=== PATIENT | female | born 1970 | race Caucasian/White ===

== ENCOUNTER → 2017-02-07 | Outpatient (CLI) | payer OTHER ==
--- NOTE | 2017-02-07 13:53 | REP ---
Mandible series: Four views. History: Severe right temporomandibular joint pain. The patient is status post injury. Findings: Four views of the mandible are presented. No mandibular, subcondylar or condylar fracture is seen. Zygomatic arches appear intact. No evidence of malocclusion. Impression: No fracture seen. Signed by Julian Francis MD 02/07/2017 02:07 P
== END ==
LOC: M WUC 12:01
PROVIDERS: ATTEND Physician Assistant
DX: R68.84 Jaw pain (principal)

== ENCOUNTER → 2017-10-24 | Day surgery (SDC) | payer OTHER ==
[~2017-10-24] MED LIST: HYDROmorphone HCL 1 MG/ML SYRINGE (J1170) IV; KETAMINE HCL 200 MG/20 ML VIAL As Ordered; LIDOCAINE 2% INJ 100 MG/5 ML SDV (FOR ANES.) As Ordered; LR 1,000 ML IV; MIDAZOLAM INJ 2 MG/2 ML VIAL (J2250) As Ordered; ONDANSETRON 4MG/2ML VIAL (J2405) IV; PERCOCET 5MG/325MG TAB PO; PROPOFOL 200 MG/20 ML VIAL As Ordered; fentaNYL 100 MCG/2 ML INJECTION (J3010) As Ordered; fentaNYL 100 MCG/2 ML INJECTION (J3010) IV
[2017-10-24 11:20] LABS: CONTROL LINE UCG INT CTR LINE PRESENT; URINE PREG TEST NEGATIVE (NEGATIVE)
[2017-10-24] MEDS: LIDOCAINE W/EPINEPHRINE 1% 20ML VIAL As Ordered (13:04)
[2017-10-24] MEDS: BUPIVACAINE HCL 0.25% 10 ML VIAL As Ordered (13:04)
[2017-10-24] MEDS: BUPIVACAINE HCL 0.5% 30 ML VIAL As Ordered (14:07)
[2017-10-24] MEDS: HEPARIN SOD (PORCINE) 5000 UNITS/ML VIAL As Ordered (14:07)
[2017-10-24] MEDS: LIDOCAINE 1% SDV INJ 30 ML VIAL As Ordered (14:07)
== END | disposition home or self-care (01) ==
LOC: M SDC 10:10
DX: Z45.2 Encounter for adjustment and management of vascular access device (principal); Z79.899 Other long term (current) drug therapy
CPT/HCPCS: 36561

== ENCOUNTER 2017-11-02 01:42 | Emergency (ER) | payer OTHER, MEDICAID ==
[2017-11-02] MEDS ORDERED: KETAMINE HCL 200 MG/20 ML VIAL IV (03:00)
[2017-11-02] MEDS: LORazepam 2 MG/ML VIAL (J2060) IV (05:30)
== END 2017-11-02 06:46 | disposition short-term general hospital (02) ==
LOC: M ED 01:42
DX: G90.50 Complex regional pain syndrome I, unspecified (principal); Z91.81 History of falling; Z88.8 Allergy status to other drugs, medicaments and biological substances; Z88.2 Allergy status to sulfonamides; Z88.0 Allergy status to penicillin; Z79.899 Other long term (current) drug therapy
CPT/HCPCS: J2060

== ENCOUNTER → 2017-11-14 | Outpatient (CLI) | payer OTHER ==
[~2017-11-14] MED LIST changes: +CLINDAMYCIN 600 MG/50 ML PREMIX BAG As Ordered; -HYDROmorphone HCL 1 MG/ML SYRINGE (J1170) IV; +ISOVUE-300 61% 50ML VIAL (Q9967) As Ordered; -KETAMINE HCL 200 MG/20 ML VIAL As Ordered; -LIDOCAINE 2% INJ 100 MG/5 ML SDV (FOR ANES.) As Ordered; +LIDOCAINE 4% CREAM 5GM (LMX4) As Ordered; -LR 1,000 ML IV; -ONDANSETRON 4MG/2ML VIAL (J2405) IV; -PERCOCET 5MG/325MG TAB PO; -PROPOFOL 200 MG/20 ML VIAL As Ordered; +ceFAZolin 1GM INJ (J0690 PER 500MG) As Ordered; -fentaNYL 100 MCG/2 ML INJECTION (J3010) IV
== END | disposition home or self-care (01) ==
LOC: M IRPRO 09:49
DX: T82.868A Thrombosis due to vascular prosthetic devices, implants and grafts, initial encounter (principal); Z79.899 Other long term (current) drug therapy
CPT/HCPCS: 36596

== ENCOUNTER 2018-03-04 15:56 | Outpatient (CLI) | payer OTHER ==
[~2018-03-04 15:56] MED LIST changes: -CLINDAMYCIN 600 MG/50 ML PREMIX BAG As Ordered; -ISOVUE-300 61% 50ML VIAL (Q9967) As Ordered; -LIDOCAINE 4% CREAM 5GM (LMX4) As Ordered; -MIDAZOLAM INJ 2 MG/2 ML VIAL (J2250) As Ordered; +SODIUM CHLORIDE 0.9% INJ 10 ML SYR IV; -ceFAZolin 1GM INJ (J0690 PER 500MG) As Ordered; -fentaNYL 100 MCG/2 ML INJECTION (J3010) As Ordered
[2018-03-04] MEDS: ALTEPLASE 2 MG/2 ML VIAL (J2997 PER 1MG) IV (16:42)
== END 2018-03-04 18:00 | disposition home or self-care (01) ==
LOC: M INFU 15:56
DX: T82.898A Other specified complication of vascular prosthetic devices, implants and grafts, initial encounter (principal); Z79.899 Other long term (current) drug therapy; Z88.0 Allergy status to penicillin; Z88.8 Allergy status to other drugs, medicaments and biological substances; I10 Essential (primary) hypertension; E78.5 Hyperlipidemia, unspecified; F17.210 Nicotine dependence, cigarettes, uncomplicated; G90.511 Complex regional pain syndrome I of right upper limb; G89.4 Chronic pain syndrome
CPT/HCPCS: 96523

== ENCOUNTER → 2018-03-17 | Outpatient (CLI) | payer OTHER ==
[~2018-03-17] MED LIST changes: +CLINDAMYCIN 600 MG/50 ML PREMIX BAG As Ordered; +LIDOCAINE 2% MDV 20 ML VIAL As Ordered; +MIDAZOLAM INJ 2 MG/2 ML VIAL (J2250) As Ordered; -SODIUM CHLORIDE 0.9% INJ 10 ML SYR IV; +fentaNYL 100 MCG/2 ML INJECTION (J3010) As Ordered
== END | disposition home or self-care (01) ==
LOC: M IRPRO 11:20
DX: T82.9XXA Unspecified complication of cardiac and vascular prosthetic device, implant and graft, initial encounter (principal); G90.511 Complex regional pain syndrome I of right upper limb
CPT/HCPCS: 36561

== ENCOUNTER → 2018-10-23 | Outpatient (CLI) | payer OTHER ==
[~2018-10-23] MED LIST changes: -CLINDAMYCIN 600 MG/50 ML PREMIX BAG As Ordered; +CLINDAMYCIN 600 MG/50 ML PREMIX BAG As Ordered ONE; +GRAL600T PO; +HYDR-3363 PO; +IBUP1TAB6 PO; +ISOVUE-300 61% 50ML VIAL (Q9967) As Ordered ONE; +LIDO5TD TD; -LIDOCAINE 2% MDV 20 ML VIAL As Ordered; +LIDOCAINE 2% MDV 20 ML VIAL As Ordered ONE; +MEXI15CA PO; -MIDAZOLAM INJ 2 MG/2 ML VIAL (J2250) As Ordered; +SERT-138 PO; +SIMV20TA2 PO; +TIZA4CAP PO; +TYLE325T5 PO; +VOLT1GEL15 TD; +[UNRECOGNIZED DRUG - CODE] IV; -fentaNYL 100 MCG/2 ML INJECTION (J3010) As Ordered
--- NOTE | 2018-10-23 07:35 | ROOPDOC ---
[facility] Report Of Operation Report of Operation DATE OF PROCEDURE: 10/23/2018 PREOPERATIVE DIAGNOSIS: Regional complex syndrome requiring access for medication instillation and blood draws. POSTOPERATIVE DIAGNOSIS: Regional complex syndrome requiring access for medication instillation and blood draws. PROCEDURE: Fluoroscopic evaluation of left subclavian vein tunneled central venous catheter with subcutaneous port. Left subclavian vein tunneled central venous catheter with subcutaneous port removal. Ultrasound guided left internal jugular vein cannulation. Fluoroscopic guided left internal jugular vein tunneled central venous catheter with subcutaneous port placement with placement of a power injectable [employer] Tall Timber Power Port with 25 cm length catheter. SURGEON: Dr. Haile Siddiqi M.D. [employer] HEL[employer]TER: Rosita Valenzuela ANESTHESIA: Local with 20 mL of 2% lidocaine. SEDATION TIME: None ANTIBIOTICS: Clindamycin 600 mg FLUOROSCOPY TIME: 0.4 minutes. CONTRAST: None. ESTIMATED BLOOD LOSS: 25 mL. IV FLUID: 150 mL. COMPLICATIONS: None. DRAINS: None. SPECIMENS: None. FINDINGS: Fluoroscopic evaluation of the left subclavian vein tunneled central venous catheter was subcutaneous port showed the catheter to be coiled in the left chest with the tip of the catheter in the subclavian vein and innominate vein junction on the left. IMPLANTS: Power injectable left internal jugular vein tunneled central venous catheter with subcutaneous port utilizing a Bard Tall Timber Power Port. INDICATION: Patient is a 47-year-old female with regional complex pain syndrome in her right upper extremity who previously underwent placement of a left subclavian vein tunneled central venous catheter with subcutaneous port placement. The port has been dysfunctional and has been able to have instillation through the port but there is no aspiration of blood on withdrawal as well as pain with cannulation of the port. Patient will undergo evaluation of the port with possible revision, repair, and or replacement. Procedure was described and explained to the patient in detail including drawing of pictures showing the procedure and anatomy associated with revision, repair, and or replacement of the tunneled central venous catheter with subcutaneous port. Risks, benefits, and alternative treatment options were discussed with the patient. Alternative treatment options included, but were not limited to, no intervention. Benefits included, but were not limited to, access for medication infusion centrally, avoiding recurrent venous cannulations , IV placements and sclerosis of peripheral veins. Risks included, but were not limited to, infection, bleeding, pneumothorax, hemothorax, possible need for further open surgical intervention, renal failure requiring hemodialysis, failure of the tunneled central venous catheter with subcutaneous port to function properly requiring evaluation, revision and/or replacement, anesthetic complication, sedation complication, possible need for transfusion of blood products, allergic reaction and/or complication from the prepping and draping materials, bruising, scarring, cerebrovascular accident, myocardial infarction, pulmonary embolus, deep venous thrombosis, loss of limb, loss of life, and poor outcome. Patient's questions were answered. Patient voices understanding of these risks, benefits, and alternative treatment options. Patient voices acceptance of the risks associated with placement of a central venous tunneled catheter with subcutaneous port placement and consents to proceed with tunneled central venous catheter with subcutaneous port placement. DESCRIPTION OF PROCEDURE: Patient was taken to the angiography suite, placed supine on the angiography room table, and prepped and draped in a standard surgical fashion. Prior to prepping and draping the veins in the neck were evaluated using ultrasound and the patient was noted to have a patent left internal jugular vein which was adequate for placement of a tunneled central venous catheter with subcutaneous port. A time-out was conducted by myself and the team members involved in the procedure, confirming the correct procedure, patient, and laterality. Fluoroscopy was then used to evaluate the left subclavian vein tunneled central venous catheter was subcutaneous port which showed the catheter to be coiled in the left chest with the tip in the subclavian vein and innominate vein junction. An incision was then made over lying the port through the previous incision made for insertion of the port after anesthetizing the overlying skin with 2% lidocaine. The subcutaneous port were sharply dissected free and removed as well as the catheter. Ultrasound was then used to evaluate the left internal jugular vein, which was noted to be easily compressible, widely patent, and free of thrombus. Ultrasound was then used to guide cannulation of the left internal jugular vein with a micropuncture needle with real-time concurrent visualization of the entry of the needle into the left internal jugular vein with a hardcopy image preserved. The skin overlying the right internal jugular vein was anesthetized with 2% lidocaine prior to cannulation. Once the left internal jugular vein was cannulated, the micropuncture wire was advanced through the micropuncture needle, which was up- sized to a micropuncture sheath. Antibiotics were given through the micropuncture sheath. A J wire was advanced through the micropuncture sheath. The left internal jugular vein was then dilated under fluoroscopic guidance, and a #8- Maltese introducer sheath was positioned through the left internal jugular vein into the superior vena cava. The wire was removed, and the #8-Maltese single lumen catheter, which had been tunneled from a puncture wound in the left chest and brought out at the puncture wound at the left internal jugular vein entry site, was advanced through the introducer sheath under fluoroscopic guidance. The catheter was positioned with the tip in the superior vena cava/right atrial junction under fluoroscopic guidance and the introducer sheath was then removed . The catheter was cut to a length of 25 cm and attached to the port. A subcutaneous pocket was created in the left chest after anesthetizing the overlying tissue with 2% lidocaine through the incision for the removal of the previous subclavian vein port. The new port was placed in the pocket and cannulated using an access needle. The port was noted to aspirate and flush easily and then was flushed with heparinized saline. The incision in the left chest was closed using # 4-0 Monocryl suture in inverted interrupted fashion. The puncture wound in the left neck was closed using a # 4-0 Monocryl in inverted interrupted fashion. Steri-Strips and dressings were applied. Patient tolerated the procedure well. All instrument, sponge, and needle counts were correct at the end of the case. There were no complications. Dr. Siddiqi was present for and directed the entire case. Patient was transferred to the recovery area and subsequently discharged in stable condition. The tunneled central venous catheter with subcutaneous port is stable for use. RADIOLOGIC SUPERVISION AND INTERPRETATION: The initial fluoroscopic evaluation of the left subclavian vein tunneled central venous catheter with subcutaneous port showed the catheter to be coiled in the left chest with the tip in the clinic in the innominate vein junction. The left subclavian vein tunneled central venous catheter with subcutaneous port was removed along with the coiled catheter. The ultrasound showed the left internal jugular vein to be easily compressible, widely patent, and free of thrombus. Ultrasound was used to guide cannulation of the left internal jugular vein with real-time concurrent visualization of the entry of the needle into the left internal jugular vein. The left internal jugular vein was then dilated under fluoroscopic guidance with a #8-Maltese introducer sheath placed under fluoroscopic guidance. The 8 Maltese single lumen catheter was advanced through the introducer sheath and positioned with the tip in the superior vena/right atrial junction using fluoroscopic guidance. The final fluoroscopic image showed the catheter and port to be in good position and good alignment with the tip in the superior vena cava/right atrial junction with no pneumo- or hemothorax noted. The tunneled central venous catheter with subcutaneous port is stable for use. Niels Siddiqi MD Oct 23, 2018 07:35
[2018-10-23 08:38] LABS: ALT/SGPT 16 U/L (12-78)
--- NOTE | 2018-11-11 11:18 | REPIR ---
DATE OF PROCEDURE: 10/23/2018 ATTENDING SURGEON: Dr. Haile Siddiqi WIRE BOUND BOX MACHINE OPERATOR: Marci Simmons and Robyn St PREOPERATIVE DIAGNOSIS: Chronic complex regional pain syndrome, dysfunctional left internal jugular vein Port-A-Cath. POSTOPERATIVE DIAGNOSIS: Chronic complex regional pain syndrome, dysfunctional left internal jugular vein Port-A-Cath. PROCEDURE: Left internal jugular vein flow study. INDICATION: The patient is a 47-year-old female with complex regional pain syndrome who requires access for medication instillation. The patient has had difficulty using her left internal jugular vein Port-A-Cath and will undergo catheter flow study with possible exchange, revision and/or repair. Risks, benefits and alternative treatment options were discussed with the patient. ANESTHESIA: None. ESTIMATED BLOOD LOSS: Minimal. IV FLUIDS: 100 mL. FLUORO TIME: 0.1 minutes. CONTRAST: 2 mL of Isovue-300. COMPLICATIONS: None. DRAINS: None. SPECIMENS: None. IMPLANTS: None. DESCRIPTION OF PROCEDURE: The patient was taken to the angiography suite and placed supine on the angiography room table and then prepped and draped in a standard surgical fashion. The left internal jugular vein tunneled central venous catheter with subcutaneous port was cannulated and aspirated and noted to aspirate easily and then was flushed with heparinized saline. The fluoroscopy showed the catheter to be in good position and good alignment with the tip in the superior vena cava/right atrial junction. The access needle was removed and dressings were applied. The patient tolerated the procedure well. All instrument, sponge and needle counts were correct at the end of the case. There were no complications. Dr. Siddiqi was present for and directed the entire case. The patient was transferred to the holding area and subsequently discharged in stable condition
== END | disposition home or self-care (01) ==
LOC: M IRPRO 06:25
PROVIDERS: ATTEND Surgery Vascular Surgery
DX: T82.524A Displacement of infusion catheter, initial encounter (principal); G90.511 Complex regional pain syndrome I of right upper limb
CPT/HCPCS: 36561; 36590; 76937; 77001; 84450; 84460; Q9967

== ENCOUNTER 2018-11-27 09:07 | Outpatient (CLI) | payer OTHER ==
[~2018-11-27] VITALS: Ht 170.2 cm; Wt 103.6 kg
[~2018-11-27 09:07] MED LIST changes: -CLINDAMYCIN 600 MG/50 ML PREMIX BAG As Ordered ONE; -ISOVUE-300 61% 50ML VIAL (Q9967) As Ordered ONE; -LIDOCAINE 2% MDV 20 ML VIAL As Ordered ONE; +SODIUM CHLORIDE 0.9% INJ 10 ML SYR IV SCH
[2018-11-27 09:15] VITALS: BP 128/81
== END 2018-11-27 10:15 | disposition home or self-care (01) ==
LOC: M INFU 09:07
PROVIDERS: ATTEND Family Medicine
DX: G90.511 Complex regional pain syndrome I of right upper limb (principal)

== ENCOUNTER 2018-11-29 22:31 | Emergency (ER) | payer OTHER ==
[~2018-11-29] VITALS: Ht 170.2 cm; Wt 99.5 kg
[~2018-11-29 22:31] MED LIST changes: -SODIUM CHLORIDE 0.9% INJ 10 ML SYR IV SCH
[2018-11-29] MEDS ORDERED: NALT50TA4 PO (22:44)
[2018-11-29] MEDS ORDERED: BUPR1TAB53 PO (22:44)
[2018-11-29] MEDS ORDERED: GABA600T4 PO (22:44)
[2018-11-29] MEDS ORDERED: TIZA4CAP6 PO (22:44)
[2018-11-29] MEDS ORDERED: CLON-412 PO (22:47)
[2018-11-29] MEDS ORDERED: SERT-138 PO (22:47)
[2018-11-29] MEDS ORDERED: KETOROLAC 30 MG/ML VIAL (J1885) IV ONE (23:15)
[2018-11-29 23:55] LABS: HEMATOCRIT 40.8 % (36.0-47.0); HEMOGLOBIN 13.7 g/dl (12.0-15.5); MEAN CORPUSCULAR HEMOGLOBIN 31.2 pg (27.0-33.0); MEAN CORPUSCULAR HGB CONC 33.6 g/dl (32.0-36.5); MEAN CORPUSCULAR VOLUME 92.9 fl (80.0-96.0); PLATELET COUNT, AUTOMATED 234 10^3/uL (150-450); RED BLOOD COUNT 4.39 10^6/uL (4.00-5.40); WHITE BLOOD COUNT 13.5 10^3/uL (4.0-10.0)
[2018-11-30 00:22] LABS: BLOOD UREA NITROGEN 17 MG/DL (7-18); CALCIUM LEVEL 8.6 MG/DL (8.5-10.1); CARBON DIOXIDE LEVEL 24 MEQ/L (21-32); CHLORIDE LEVEL 107 MEQ/L (98-107); CPK CREATINE PHOSPHOKINASE 82 U/L (26-192); CREATININE FOR GFR 0.78 MG/DL (0.55-1.30); GLOMERULAR FILTRATION RATE > 60.0 (>58); GLUCOSE, FASTING 97 MG/DL (70-100); MB/CK RELATIVE INDEX 1.46 (< OR =4); POTASSIUM SERUM 3.9 MEQ/L (3.5-5.1); SODIUM LEVEL 138 MEQ/L (136-145); TROPONIN I < 0.02 NG/ML (< 0.10)
[2018-11-30 00:38] LABS: ATYPICAL LYMPH 9 % (0-5); BASOPHILS 2 % (0-4); EOSINOPHILS 1 % (0-5); LYMPHOCYTES 36 % (16-52); MONOCYTES 6 % (0-8); NEUTROPHILS 46 % (35-75); PLATELET ESTIMATE NORMAL (NORMAL)
[2018-11-30] MEDS ORDERED: CYCLOBENZAPRINE 10 MG TAB PO ONE (00:45)
[2018-11-30 02:00] VITALS: BP 113/65
--- NOTE | 2018-11-30 03:53 | REP ---
Clinical: Acute chest pain . Comparison: 10/24/2017 . Findings: The mediastinum and cardiac silhouette are stable and within normal limits for portable technique. Ooceim-R-Hcrg with tip in the SVC. The lung adams demonstrate chronic-appearing changes without acute consolidation, effusion, or pneumothorax. Skeletal structures are intact. Impression: No acute cardiopulmonary process appreciated. Electronically Signed by Olu Klein MD 11/30/2018 03:44 A
--- NOTE | 2018-11-30 06:33 | ECGEPIP ---
Stationary ECG Study [facility] - ED Test Date: 2018-11-29 Pat Name: MIA ASHBY Department: Room: - Gender: F [employer] Installer: [place] : 1970 Requested By: MIA Chaudhry Order Number: [id number] Reading MD: Sunny Lopez Measurements Intervals [place] Rate: 81 P: 36 CT: 154 QRS: 32 QRSD: 86 T: 43 QT: 384 QTc: 446 Interpretive Statements SINUS RHYTHM POSSIBLE LEFT ATRIAL ENLARGEMENT NO PRIORS FOR COMPARISON Electronically Signed On 11-30-2018 6:32:44 EDT by Sunny Lopez
== END 2018-11-30 02:34 | disposition home or self-care (01) ==
LOC: M ED 22:31
DX: R10.9 Unspecified abdominal pain (principal); R07.9 Chest pain, unspecified; G90.50 Complex regional pain syndrome I, unspecified; Z79.899 Other long term (current) drug therapy; Z88.0 Allergy status to penicillin; Z88.2 Allergy status to sulfonamides; Z88.8 Allergy status to other drugs, medicaments and biological substances
CPT/HCPCS: 71045; 80048; 81001; 82550; 82553; 85025; 93005; 93041; 94760; 96374; 99285; J1885

== ENCOUNTER → 2018-12-08 | Outpatient (CLI) | payer OTHER ==
[~2018-12-08] MED LIST changes: +BUPIVACAINE HCL 0.5% 10 ML VIAL As Ordered ONE; +BUPR1TAB53 PO; +CLINDAMYCIN 600 MG/50 ML PREMIX BAG As Ordered ONE; +CLON-412 PO; +GABA600T4 PO; +ISOVUE-300 61% 50ML VIAL (Q9967) As Ordered ONE; +KETOROLAC 30 MG/ML VIAL (J1885) As Ordered ONE; +LIDOCAINE 2% MDV 20 ML VIAL As Ordered ONE; +MIDAZOLAM INJ 2 MG/2 ML VIAL (J2250) As Ordered ONE; +NALT50TA4 PO; +TIZA4CAP6 PO; +fentaNYL 100 MCG/2 ML INJECTION (J3010) As Ordered ONE
--- NOTE | 2018-12-16 12:35 | REPIR ---
DATE OF PROCEDURE: 12/08/2018 PREOPERATIVE DIAGNOSES: Regional complex pain syndrome, right upper extremity. Positive tobacco use. Dysfunctional left internal jugular vein Port-A-Cath. POSTOPERATIVE DIAGNOSES: Regional complex pain syndrome, right upper extremity. Positive tobacco use. Dysfunctional left internal jugular vein Port-A-Cath. PROCEDURE: Port-A-Cath flow study, Port-A-Cath exchange, fibrin sheath angioplasty with 10 x 8 balloon. ATTENDING SURGEON: Dr. Haile Siddiqi COMBAT SYSTEMS OPERATOR: Rosita Valenzuela and Marci Simmnos ANESTHESIA: Local with 20 mL of 2% lidocaine and 10 mL of 0.5% Marcaine. FLUORO TIME: 0.9 minutes. CONTRAST: 2 mL clindamycin 600 mg COMPLICATIONS: None. DRAINS: None. SPECIMENS: None. INDICATION: The patient is a 47-year-old female with recent complex pain syndrome who requires access for infusions and has a left internal jugular vein Port-A-Cath, which is dysfunctional. The patient will undergo catheter flow study with possible exchange. The risks, benefits, and alternative treatment options were discussed with the patient. DESCRIPTION OF PROCEDURE: The patient was taken to the angiography suite, placed supine on the angiography room table. The port was dissected free through the old incision and then a catheter flow study was performed showing a fibrin sheath. The fibrin sheath was angioplastied with a 10 x 8 balloon with a followup angiogram showing no residual fibrin sheath. A new catheter was placed over the wire and exchanged for the 25 cm catheter, which was upsized to 27 cm catheter. This was connected to a new port, which was placed in the pocket. The port was aspirated, noted to aspirate easily and then flushed with heparinized saline. The catheter and port were in good position and good alignment on final fluoroscopic image with no pneumothorax or hemothorax noted. The catheter and port are stable for use for access.
== END | disposition home or self-care (01) ==
LOC: M IRPRO 06:38
PROVIDERS: ATTEND Surgery Vascular Surgery
DX: T82.9XXA Unspecified complication of cardiac and vascular prosthetic device, implant and graft, initial encounter (principal); G90.511 Complex regional pain syndrome I of right upper limb; Z72.0 Tobacco use; Z79.899 Other long term (current) drug therapy; Y92.9 Unspecified place or not applicable; X58.XXXA Exposure to other specified factors, initial encounter
CPT/HCPCS: 36582; 36595; 77001; C1725; C1769; C1788; Q9967

== ENCOUNTER 2019-01-07 09:36 | Outpatient (CLI) | payer OTHER ==
[~2019-01-07] VITALS: Ht 170.2 cm; Wt 99.5 kg
[~2019-01-07 09:36] MED LIST changes: -BUPIVACAINE HCL 0.5% 10 ML VIAL As Ordered ONE; -CLINDAMYCIN 600 MG/50 ML PREMIX BAG As Ordered ONE; -ISOVUE-300 61% 50ML VIAL (Q9967) As Ordered ONE; -KETOROLAC 30 MG/ML VIAL (J1885) As Ordered ONE; -LIDOCAINE 2% MDV 20 ML VIAL As Ordered ONE; -MIDAZOLAM INJ 2 MG/2 ML VIAL (J2250) As Ordered ONE; +SODIUM CHLORIDE 0.9% INJ 10 ML SYR IV SCH; -fentaNYL 100 MCG/2 ML INJECTION (J3010) As Ordered ONE
[2019-01-07 09:50] VITALS: BP 124/73
[2019-01-07 11:31] LABS: ALT/SGPT 23 U/L (12-78)
== END 2019-01-07 10:35 | disposition home or self-care (01) ==
LOC: M INFU 09:36
PROVIDERS: ATTEND Family Medicine
DX: G90.511 Complex regional pain syndrome I of right upper limb (principal)

== ENCOUNTER → 2019-02-09 | Outpatient (CLI) | payer OTHER ==
[~2019-02-09] VITALS: Ht 170.2 cm; Wt 103.6 kg
[2019-02-09 08:40] VITALS: BP 123/82
== END ==
LOC: M INFU 08:37
PROVIDERS: ATTEND Family Medicine
DX: G90.511 Complex regional pain syndrome I of right upper limb (principal)

== ENCOUNTER → 2019-03-25 | Outpatient (CLI) | payer OTHER ==
[~2019-03-25] MED LIST changes: -SODIUM CHLORIDE 0.9% INJ 10 ML SYR IV SCH
--- NOTE | 2019-03-25 11:24 | REP ---
MRI LUMBAR SPINE WITHOUT CONTRAST: HISTORY: Paresthesias of the skin. Radiculopathy. No comparison cervical spine imaging. TECHNIQUE: Sagittal and axial T1 and T2-weighted scans are acquired in the usual fashion with and without fat saturation. Sequences include spin echo, turbo spin-echo, and STIR imaging sequences. MRI FINDINGS: There is straightening and slight reversal of the normal cervical lordosis. Vertebral body heights are preserved. Alignment is otherwise normal. A small hemangioma is seen at C6. Cortical and medullary bone signal intensity are otherwise normal. The cervical cord is normal in course, caliber, and signal intensity on T1- and T2-weighted scans. Axial and sagittal images at the C2-3 level are unremarkable. At C3-4, there is minimal central disc bulging indenting the thecal sac. At C4-C5, there is no evidence of disc protrusion, neural foraminal narrowing, or central canal stenosis. At C5-6, there is mild disc bulging and disc space narrowing. This indents the ventral margin of the thecal sac. No central canal stenosis is seen. There is minimal uncovertebral spurring bilaterally at C5-6. At C6-7, there is degenerative disc narrowing. Minimal uncovertebral spurring is noted on the right at C6-7. The C7-T1 level is unremarkable. Exam is otherwise negative. IMPRESSION: Mild degenerative spondylosis changes C5-6 and C6-7 with minimal uncovertebral spurring at these two levels as above. Electronically Signed by Julian Francis MD 03/25/2019 05:02 P
--- NOTE | 2019-03-25 12:01 | REP ---
MRI brain without contrast: History: Para see is a skin. Dizziness. Radiculopathy. . Comparison study: No comparison brain imaging. Technique: Axial and sagittal imaging planes are utilized for T1 and T2-weighted scans. Sequences include spin-echo, fast spin echo, FLAIR, and diffusion weighted sequences. MRI findings: No bony calvarial lesion is seen. Craniocervical junction and upper cervical cord are normal in appearance. There is no MR evidence of significant paranasal sinus disease. No intraorbital abnormality is seen. The lateral, third, and fourth ventricles are normal in size and position. Torres-white differentiation pattern is intact above and below the tentorium. There is no evidence of intracranial hemorrhage. No mass, infarction, extra-axial fluid collection or midline shift is seen. No abnormal white matter lesion is seen. Impression: Negative noncontrast brain MRI study. Electronically Signed by Julian Francis MD 03/25/2019 11:54 A
== END ==
LOC: M RAD 08:55
PROVIDERS: ATTEND Physician Assistant
DX: M54.12 Radiculopathy, cervical region (principal); R20.2 Paresthesia of skin; R42 Dizziness and giddiness

== ENCOUNTER 2019-04-22 08:37 | Emergency (ER) | payer OTHER ==
[~2019-04-22] VITALS: Ht 170.2 cm; Wt 103.6 kg
[2019-04-22] MEDS ORDERED: SODIUM CHLORIDE 0.9% INJ 10 ML SYR IV SCH (09:00)
[2019-04-22] MEDS ORDERED: LORazepam 2 MG/ML VIAL (J2060) IV STA (09:25)
[2019-04-22] MEDS ORDERED: DILUENT IV ONE (09:30)
[2019-04-22] MEDS ORDERED: NACL IV ONE (09:30)
[2019-04-22] MEDS ORDERED: KETAMINE IV ONE (09:30)
[2019-04-22] MEDS ORDERED: diphenhydrAMINE INJ 50MG/ML VIAL (J1200) IV ONE (09:30)
[2019-04-22] MEDS ORDERED: KETOROLAC 30 MG/ML VIAL (J1885) IM ONE (09:30)
[2019-04-22] MEDS ORDERED: cloNIDine 0.1 MG TAB PO ONE (09:45)
--- NOTE | 2019-04-22 10:27 | REP ---
LEFT HIP, TWO VIEWS: Two views of the left hip are performed. I see no acute fracture or dislocation. There is moderate joint space narrowing, subchondral sclerosis and spurring compatible with arthritic change. IMPRESSION: Degenerative changes without fracture or dislocation. Electronically Signed by Frank Torres MD 04/22/2019 11:26 A
--- NOTE | 2019-04-22 10:34 | REP ---
CT HEAD WITHOUT CONTRAST: HISTORY: Trauma. There is no intraparenchymal hemorrhage, mass or midline shift. The ventricular system is normal in appearance. There is no extracerebral collection. There is no fracture. The visualized sinuses are clear. IMPRESSION: There is no intracranial lesion. Electronically Signed by George Lepe MD 04/22/2019 10:44 A
--- NOTE | 2019-04-22 10:38 | REP ---
MAXILLOFACIAL CT WITHOUT CONTRAST: HISTORY: Trauma. A right Conner cell is present. Minimal mucosal thickening is present in the ethmoid and left maxillary sinuses. The remaining sinuses are clear. The ostiomeatal units are patent. The middle and inferior nasal turbinates are partially paradoxical. There is minimal deviation of the nasal septum to the left superiorly and to the right inferiorly. A spur is present arising from the right side of the nasal septum. The spur abuts the right inferior nasal turbinate. The cribriform plate medial swartz of the orbits and optic canals are intact. The carotid canals form a segment of the posterolateral swartz of the sphenoid sinus. There is no fracture. IMPRESSION: Sinus mucosal thickening as described above. Electronically Signed by George Lepe MD 04/22/2019 10:44 A
--- NOTE | 2019-04-22 10:42 | REP ---
CT CERVICAL SPINE WITHOUT CONTRAST: HISTORY: Trauma. There is no acute fracture or subluxation. There is no disc bulge or herniation. The spinal canal and neural foramina are patent. The intervertebral discs are normal in height. There is loss of the normal lordotic curve. IMPRESSION: There is no acute fracture or subluxation. Electronically Signed by George Lepe MD 04/22/2019 05:40 P
[2019-04-22 11:14] VITALS: BP 141/78
[2019-04-22] MEDS ORDERED: KETOROLAC 30 MG/ML VIAL (J1885) IV ONE (11:30)
[2019-04-22 11:58] VITALS: BP 140/75
[2019-04-22] MEDS ORDERED: SODIUM CHLORIDE 0.9% INJ 10 ML SYR IV PRN (12:15)
== END 2019-04-22 12:30 | disposition home or self-care (01) ==
LOC: EDBD 08:37 → M ED 08:37
DX: T76.11XA Adult physical abuse, suspected, initial encounter (principal); S16.1XXA Strain of muscle, fascia and tendon at neck level, initial encounter; S09.90XA Unspecified injury of head, initial encounter; S80.10XA Contusion of unspecified lower leg, initial encounter; Y92.098 Other place in other non-institutional residence as the place of occurrence of the external cause; G90.50 Complex regional pain syndrome I, unspecified; F17.210 Nicotine dependence, cigarettes, uncomplicated; Z88.0 Allergy status to penicillin; Z88.2 Allergy status to sulfonamides; Z88.8 Allergy status to other drugs, medicaments and biological substances; Z79.899 Other long term (current) drug therapy
CPT/HCPCS: 70450; 70486; 72125; 73502; 93041; 96365; 96375; 99284; J1200; J1885; J2060

== ENCOUNTER 2019-06-01 08:02 | Outpatient (CLI) | payer OTHER ==
[~2019-06-01] VITALS: Ht 170.2 cm; Wt 106.8 kg
[~2019-06-01 08:02] MED LIST changes: -SIMV20TA2 PO; +SIMV20TA22 PO
[2019-06-01 08:10] VITALS: BP 117/71
[2019-06-01] MEDS ORDERED: SODIUM CHLORIDE 0.9% INJ 10 ML SYR IV SCH (09:00)
[2019-06-01 09:44] LABS: ALBUMIN 3.3 GM/DL (3.2-5.2); ALT/SGPT 17 U/L (12-78); BILIRUBIN,TOTAL 0.1 MG/DL (0.2-1.0); BLOOD UREA NITROGEN 17 MG/DL (7-18); CALCIUM LEVEL 8.8 MG/DL (8.5-10.1); CARBON DIOXIDE LEVEL 26 MEQ/L (21-32); CHLORIDE LEVEL 110 MEQ/L (98-107); CHOLESTEROL LEVEL 246 MG/DL (<200); CHOLESTEROL RISK RATIO 6.307 (<5); CREATININE FOR GFR 0.87 MG/DL (0.55-1.30); GLOMERULAR FILTRATION RATE > 60.0 (>58); GLUCOSE, FASTING 121 MG/DL (70-100); HDL CHOLESTEROL 39 MG/DL (>40); LDL CHOLESTEROL 166 MG/DL (<100); NON-HDL-C 207 MG/DL; POTASSIUM SERUM 4.4 MEQ/L (3.5-5.1); SODIUM LEVEL 142 MEQ/L (136-145); TOTAL PROTEIN 6.3 GM/DL (6.4-8.2); TRIGLYCERIDES LEVEL 205 MG/DL (<150)
== END 2019-06-01 09:00 | disposition home or self-care (01) ==
LOC: M INFU 08:02
PROVIDERS: ATTEND Family Medicine
DX: G90.50 Complex regional pain syndrome I, unspecified (principal)

== ENCOUNTER 2019-08-27 12:02 | Outpatient (CLI) | payer OTHER ==
[~2019-08-27] VITALS: Ht 170.2 cm; Wt 106.8 kg
[2019-08-27 12:00] VITALS: BP_SYST 115; BP_SYST 120; BP_DIAS 67; BP_DIAS 69
[~2019-08-27 12:02] MED LIST changes: +SODIUM CHLORIDE 0.9% INJ 10 ML SYR IV SCH
== END 2019-08-27 13:00 | disposition home or self-care (01) ==
LOC: M INFU 12:02
PROVIDERS: ATTEND Family Medicine
DX: G90.50 Complex regional pain syndrome I, unspecified (principal); Z88.0 Allergy status to penicillin; Z88.2 Allergy status to sulfonamides; Z88.8 Allergy status to other drugs, medicaments and biological substances

== ENCOUNTER → 2019-08-27 | Outpatient (REF) | payer OTHER | LOC: M LAB 13:01 | DX: Z53.9 Procedure and treatment not carried out, unspecified reason (principal) ==

== ENCOUNTER 2019-10-27 08:08 | Outpatient (CLI) | payer OTHER ==
[~2019-10-27] VITALS: Ht 170.2 cm; Wt 106.0 kg
[~2019-10-27 08:08] MED LIST changes: +SODIUM CHLORIDE 0.9% INJ 10 ML SYR IV ONE; -SODIUM CHLORIDE 0.9% INJ 10 ML SYR IV SCH
== END 2019-10-27 10:00 | disposition home or self-care (01) ==
LOC: M INFU 08:08
PROVIDERS: ATTEND Family Medicine
DX: G90.50 Complex regional pain syndrome I, unspecified (principal); Z88.0 Allergy status to penicillin; Z88.2 Allergy status to sulfonamides; Z88.8 Allergy status to other drugs, medicaments and biological substances
CPT/HCPCS: 36415; J1642

== ENCOUNTER 2019-12-22 08:49 | Outpatient (CLI) | payer OTHER ==
[~2019-12-22] VITALS: Ht 170.2 cm; Wt 106.0 kg
[2019-12-22 08:55] VITALS: BP 142/77
[2019-12-22] MEDS ORDERED: SODIUM CHLORIDE 0.9% INJ 10 ML SYR IV SCH (09:00)
== END 2019-12-22 10:10 | disposition home or self-care (01) ==
LOC: M INFU 08:49
PROVIDERS: ATTEND Physician Assistant
DX: G90.50 Complex regional pain syndrome I, unspecified (principal); Z88.0 Allergy status to penicillin; Z88.2 Allergy status to sulfonamides; Z88.8 Allergy status to other drugs, medicaments and biological substances
CPT/HCPCS: 96523; J1642

== ENCOUNTER → 2019-12-22 | Outpatient (CLI) | payer OTHER ==
[~2019-12-22] MED LIST changes: -SODIUM CHLORIDE 0.9% INJ 10 ML SYR IV ONE
[2019-12-22 11:18] LABS: ALBUMIN 3.5 GM/DL (3.2-5.2); ALT/SGPT 26 U/L (12-78); BILIRUBIN,DIRECT < 0.1 MG/DL (0.0-0.2); BILIRUBIN,TOTAL 0.2 MG/DL (0.2-1.0); BLOOD UREA NITROGEN 13 MG/DL (7-18); CALCIUM LEVEL 8.8 MG/DL (8.5-10.1); CARBON DIOXIDE LEVEL 27 MEQ/L (21-32); CHLORIDE LEVEL 111 MEQ/L (98-107); GLOMERULAR FILTRATION RATE > 60.0 (>58); GLUCOSE, FASTING 116 MG/DL (70-100); POTASSIUM SERUM 4.1 MEQ/L (3.5-5.1); SODIUM LEVEL 142 MEQ/L (136-145); TOTAL PROTEIN 6.7 GM/DL (6.4-8.2)
== END ==
LOC: M LAB 09:52
DX: G90.50 Complex regional pain syndrome I, unspecified (principal); R94.5 Abnormal results of liver function studies; T50.905A Adverse effect of unspecified drugs, medicaments and biological substances, initial encounter

== ENCOUNTER 2020-02-29 08:23 | Outpatient (CLI) | payer OTHER ==
[~2020-02-29] VITALS: Ht 167.6 cm; Wt 106.0 kg
[2020-02-29 08:45] VITALS: BP 133/75
[2020-02-29] MEDS ORDERED: SODIUM CHLORIDE 0.9% INJ 10 ML SYR IV SCH (09:00)
[2020-02-29 09:47] LABS: ALBUMIN 3.4 GM/DL (3.2-5.2); ALT/SGPT 28 U/L (12-78); BILIRUBIN,DIRECT 0.1 MG/DL (0.0-0.2); BILIRUBIN,TOTAL 0.3 MG/DL (0.2-1.0); BLOOD UREA NITROGEN 16 MG/DL (7-18); CALCIUM LEVEL 8.7 MG/DL (8.5-10.1); CARBON DIOXIDE LEVEL 25 MEQ/L (21-32); CHLORIDE LEVEL 111 MEQ/L (98-107); CREATININE FOR GFR 0.87 MG/DL (0.55-1.30); GLOMERULAR FILTRATION RATE > 60.0 (>58); GLUCOSE, FASTING 130 MG/DL (70-100); SODIUM LEVEL 142 MEQ/L (136-145); TOTAL PROTEIN 6.8 GM/DL (6.4-8.2)
== END 2020-02-29 09:05 | disposition home or self-care (01) ==
LOC: M INFU 08:23
PROVIDERS: ATTEND Physician Assistant
DX: G90.50 Complex regional pain syndrome I, unspecified (principal); R94.5 Abnormal results of liver function studies
CPT/HCPCS: 36591; 80048; 80076; J1642

== ENCOUNTER 2020-08-21 10:31 | Outpatient (CLI) | payer OTHER ==
[2020-08-21] MEDS ORDERED: SODIUM CHLORIDE 0.9% INJ 10 ML SYR IV PRN (10:45)
[2020-08-21 11:10] VITALS: BP 133/84
[2020-08-22] MEDS ORDERED: SODIUM CHLORIDE 0.9% INJ 10 ML SYR IV SCH (09:00)
== END 2020-08-21 11:10 | disposition home or self-care (01) ==
LOC: M INFU 10:31
PROVIDERS: ATTEND Anesthesiology
DX: G90.59 Complex regional pain syndrome I of other specified site (principal)
CPT/HCPCS: 36591; J1642

== ENCOUNTER → 2020-08-21 | Outpatient (CLI) | payer OTHER ==
[2020-08-21 11:18] LABS: BASO # 0.1 10^3/uL (0.0-0.2); BASO % 0.5 % (0.0-1.0); EOS # 0.3 10^3/uL (0.0-0.5); EOS % 2.7 % (0.0-3.0); HEMOGLOBIN 13.6 g/dl (12.0-15.5); LYMPH # 2.8 10^3/uL (1.5-5.0); LYMPH % 27.2 % (24.0-44.0); MEAN CORPUSCULAR HEMOGLOBIN 30.6 pg (27.0-33.0); MEAN CORPUSCULAR HGB CONC 32.4 g/dl (32.0-36.5); MEAN CORPUSCULAR VOLUME 94.6 fl (80.0-96.0); MONO # 0.8 10^3/uL (0.0-0.8); NEUTROPHILS # 6.2 10^3/uL (1.5-8.5); NEUTROPHILS % 61.3 % (36.0-66.0); PLATELET COUNT, AUTOMATED 202 10^3/uL (150-450); RED BLOOD COUNT 4.44 10^6/uL (4.00-5.40); WHITE BLOOD COUNT 10.1 10^3/uL (4.0-10.0)
[2020-08-21 11:43] LABS: HEMOGLOBIN A1c 5.7 %
[2020-08-21 12:05] LABS: ALBUMIN 3.6 GM/DL (3.2-5.2); ALT/SGPT 23 U/L (12-78); BILIRUBIN,TOTAL 0.4 MG/DL (0.2-1.0); BLOOD UREA NITROGEN 16 MG/DL (7-18); CALCIUM LEVEL 9.2 MG/DL (8.5-10.1); CARBON DIOXIDE LEVEL 27 MEQ/L (21-32); CHLORIDE LEVEL 108 MEQ/L (98-107); CHOLESTEROL LEVEL 179 MG/DL (<200); CHOLESTEROL RISK RATIO 3.314 (<5); CREATININE FOR GFR 0.86 MG/DL (0.55-1.30); GLOMERULAR FILTRATION RATE > 60.0 (>58); GLUCOSE, FASTING 104 MG/DL (70-100); HDL CHOLESTEROL 54 MG/DL (>40); LDL CHOLESTEROL 109 MG/DL (<100); NON-HDL-C 125 MG/DL; POTASSIUM SERUM 4.2 MEQ/L (3.5-5.1); SODIUM LEVEL 138 MEQ/L (136-145); TOTAL 25(OH) VITAMIN D 77.4 NG/ML (30.0-100.0); TOTAL PROTEIN 6.9 GM/DL (6.4-8.2); TRIGLYCERIDES LEVEL 78 MG/DL (<150)
== END ==
LOC: M LAB 10:33
PROVIDERS: ATTEND Physician Assistant
DX: R73.03 Prediabetes (principal); E78.5 Hyperlipidemia, unspecified; G90.50 Complex regional pain syndrome I, unspecified

== ENCOUNTER → 2020-09-17 | Outpatient (CLI) | payer SELFPAY | LOC: M LABSMTC 10:13 | PROVIDERS: ATTEND Pediatrics | DX: Z20.828 Contact with and (suspected) exposure to other viral communicable diseases (principal) ==

== ENCOUNTER 2020-10-22 12:49 | Emergency (ER) | payer OTHER ==
[~2020-10-22] VITALS: Ht 170.2 cm; Wt 105.8 kg
[2020-10-22 12:49] VITALS: BP 141/81
--- NOTE | 2020-10-22 14:17 | REP ---
INDICATION: posterior trauma. COMPARISON: [id number]. TECHNIQUE: CT cervical spine performed in the axial plane, with sagittal and coronal reconstruction images performed. FINDINGS: There is no acute compression fracture or malalignment. There is no prevertebral soft tissue swelling. Disc spaces are well preserved. There is normal cervical lordosis. There is no abnormal density in the spinal canal. IMPRESSION: No evidence of acute fracture or dislocation. <Electronically signed by Frank Torres > 10/22/20 [id number]
== END 2020-10-22 14:55 | disposition home or self-care (01) ==
LOC: M ED 12:49
DX: S13.4XXA Sprain of ligaments of cervical spine, initial encounter (principal); S00.81XA Abrasion of other part of head, initial encounter; Y04.8XXA Assault by other bodily force, initial encounter; Y92.89 Other specified places as the place of occurrence of the external cause; Y07.499 Other family member, perpetrator of maltreatment and neglect; I10 Essential (primary) hypertension; E78.00 Pure hypercholesterolemia, unspecified; F33.9 Major depressive disorder, recurrent, unspecified; G90.50 Complex regional pain syndrome I, unspecified; Z79.899 Other long term (current) drug therapy; Z88.0 Allergy status to penicillin; Z88.1 Allergy status to other antibiotic agents; Z88.2 Allergy status to sulfonamides; Z88.8 Allergy status to other drugs, medicaments and biological substances; F17.210 Nicotine dependence, cigarettes, uncomplicated

== ENCOUNTER 2020-11-07 07:52 | Outpatient (CLI) | payer OTHER ==
[~2020-11-07] VITALS: Ht 170.2 cm; Wt 106.4 kg
[2020-11-07 08:05] VITALS: BP 123/87
[2020-11-07 08:47] LABS: BLOOD UREA NITROGEN 13 MG/DL (7-18); CARBON DIOXIDE LEVEL 27 MEQ/L (21-32); CHLORIDE LEVEL 105 MEQ/L (98-107); CREATININE FOR GFR 0.89 MG/DL (0.55-1.30); GLOMERULAR FILTRATION RATE > 60.0 (>58); GLUCOSE, FASTING 125 MG/DL (70-100); POTASSIUM SERUM 4.2 MEQ/L (3.5-5.1); SODIUM LEVEL 139 MEQ/L (136-145)
[2020-11-07 08:48] LABS: ALBUMIN 3.5 GM/DL (3.2-5.2); ALT/SGPT 107 U/L (12-78); BILIRUBIN,DIRECT < 0.1 MG/DL (0.0-0.2); BILIRUBIN,TOTAL 0.2 MG/DL (0.2-1.0); CALCIUM LEVEL 8.8 MG/DL (8.5-10.1); TOTAL PROTEIN 6.6 GM/DL (6.4-8.2)
[2020-11-07] MEDS ORDERED: SODIUM CHLORIDE 0.9% INJ 10 ML SYR IV SCH (09:00)
== END 2020-11-07 08:05 | disposition home or self-care (01) ==
LOC: M INFU 07:52
PROVIDERS: ATTEND Anesthesiology
DX: Z79.899 Other long term (current) drug therapy (principal); Z95.828 Presence of other vascular implants and grafts
CPT/HCPCS: 36591; 80048; 80076; 96523; J1642

== ENCOUNTER 2021-01-03 10:09 | Outpatient (CLI) | payer OTHER ==
[~2021-01-03] VITALS: Ht 170.2 cm; Wt 106.4 kg
[~2021-01-03 10:09] MED LIST changes: +SODIUM CHLORIDE 0.9% INJ 10 ML SYR IV PRN
[2021-01-03 10:54] VITALS: BP 133/80
[2021-01-03 11:54] LABS: ALBUMIN 3.3 GM/DL (3.2-5.2); ALT/SGPT 23 U/L (12-78); BILIRUBIN,DIRECT < 0.1 MG/DL (0.0-0.2); BILIRUBIN,TOTAL 0.4 MG/DL (0.2-1.0); BLOOD UREA NITROGEN 10 MG/DL (7-18); CALCIUM LEVEL 8.5 MG/DL (8.5-10.1); CARBON DIOXIDE LEVEL 25 MEQ/L (21-32); CHLORIDE LEVEL 110 MEQ/L (98-107); CREATININE FOR GFR 0.73 MG/DL (0.55-1.30); GLOMERULAR FILTRATION RATE > 60.0 (>58); GLUCOSE, FASTING 118 MG/DL (70-100); POTASSIUM SERUM 3.9 MEQ/L (3.5-5.1); SODIUM LEVEL 142 MEQ/L (136-145); TOTAL PROTEIN 6.3 GM/DL (6.4-8.2)
[2021-01-04] MEDS ORDERED: SODIUM CHLORIDE 0.9% INJ 10 ML SYR IV SCH (09:00)
== END 2021-01-03 10:50 | disposition home or self-care (01) ==
LOC: M INFU 10:09
PROVIDERS: ATTEND Anesthesiology
DX: Z95.828 Presence of other vascular implants and grafts (principal); Z79.899 Other long term (current) drug therapy
CPT/HCPCS: 36591; 80048; 80076; J1642

== ENCOUNTER 2021-01-23 08:09 | Outpatient (CLI) | payer OTHER ==
[~2021-01-23] VITALS: Ht 170.2 cm; Wt 106.0 kg
[2021-01-23 08:10] VITALS: BP 178/96
[2021-01-23] MEDS ORDERED: SODIUM CHLORIDE 0.9% INJ 10 ML SYR IV SCH (09:00)
[2021-01-23 09:13] LABS: ALBUMIN 3.7 GM/DL (3.2-5.2); ALT/SGPT 48 U/L (12-78); BILIRUBIN,DIRECT 0.1 MG/DL (0.0-0.2); BILIRUBIN,TOTAL 0.4 MG/DL (0.2-1.0); BLOOD UREA NITROGEN 20 MG/DL (7-18); CALCIUM LEVEL 9.4 MG/DL (8.5-10.1); CARBON DIOXIDE LEVEL 23 MEQ/L (21-32); CHLORIDE LEVEL 109 MEQ/L (98-107); CREATININE FOR GFR 0.83 MG/DL (0.55-1.30); GLOMERULAR FILTRATION RATE > 60.0 (>58); GLUCOSE, FASTING 106 MG/DL (70-100); POTASSIUM SERUM 4.4 MEQ/L (3.5-5.1); SODIUM LEVEL 139 MEQ/L (136-145); TOTAL PROTEIN 7.4 GM/DL (6.4-8.2)
[2021-01-23 09:15] LABS: ALBUMIN 3.7 GM/DL (3.2-5.2); ALT/SGPT 48 U/L (12-78); BILIRUBIN,TOTAL 0.4 MG/DL (0.2-1.0); BLOOD UREA NITROGEN 20 MG/DL (7-18); CALCIUM LEVEL 9.5 MG/DL (8.5-10.1); CARBON DIOXIDE LEVEL 23 MEQ/L (21-32); CHLORIDE LEVEL 109 MEQ/L (98-107); CREATININE FOR GFR 0.87 MG/DL (0.55-1.30); GLOMERULAR FILTRATION RATE > 60.0 (>58); GLUCOSE, FASTING 108 MG/DL (70-100); POTASSIUM SERUM 4.4 MEQ/L (3.5-5.1); SODIUM LEVEL 140 MEQ/L (136-145); TOTAL PROTEIN 7.3 GM/DL (6.4-8.2)
== END 2021-01-23 08:25 | disposition home or self-care (01) ==
LOC: M INFU 08:09
PROVIDERS: ATTEND Anesthesiology
DX: Z95.828 Presence of other vascular implants and grafts (principal); Z79.899 Other long term (current) drug therapy

== ENCOUNTER 2021-03-20 11:48 | Outpatient (CLI) | payer OTHER ==
[~2021-03-20 11:48] MED LIST changes: -SODIUM CHLORIDE 0.9% INJ 10 ML SYR IV PRN
[2021-03-20 11:55] VITALS: BP 122/72
[2021-03-20] MEDS ORDERED: SODIUM CHLORIDE 0.9% INJ 10 ML SYR IV PRN (12:00)
[2021-03-20 13:11] LABS: ALBUMIN 3.5 GM/DL (3.2-5.2); ALT/SGPT 23 U/L (12-78); BILIRUBIN,DIRECT 0.1 MG/DL (0.0-0.2); BILIRUBIN,TOTAL 0.4 MG/DL (0.2-1.0); BLOOD UREA NITROGEN 11 MG/DL (7-18); CALCIUM LEVEL 9.4 MG/DL (8.5-10.1); CARBON DIOXIDE LEVEL 28 MEQ/L (21-32); CHLORIDE LEVEL 109 MEQ/L (98-107); CREATININE FOR GFR 0.75 MG/DL (0.55-1.30); GLOMERULAR FILTRATION RATE > 60.0 (>58); GLUCOSE, FASTING 90 MG/DL (70-100); POTASSIUM SERUM 4.3 MEQ/L (3.5-5.1); SODIUM LEVEL 142 MEQ/L (136-145); TOTAL PROTEIN 6.8 GM/DL (6.4-8.2)
[2021-03-21] MEDS ORDERED: SODIUM CHLORIDE 0.9% INJ 10 ML SYR IV SCH (09:00)
== END 2021-03-20 12:15 | disposition home or self-care (01) ==
LOC: M INFU 11:48
PROVIDERS: ATTEND Anesthesiology
DX: Z95.828 Presence of other vascular implants and grafts (principal); Z88.0 Allergy status to penicillin; Z88.1 Allergy status to other antibiotic agents
CPT/HCPCS: 36591; 80048; 80076; 96523; J1642

== ENCOUNTER 2021-05-03 14:31 | Outpatient (CLI) | payer OTHER ==
[~2021-05-03 14:31] MED LIST changes: +SODIUM CHLORIDE 0.9% INJ 10 ML SYR IV PRN
[2021-05-03 14:40] VITALS: BP 135/72
[2021-05-03 15:44] LABS: BASO # 0.1 10^3/uL (0.0-0.2); BASO % 0.6 % (0.0-1.0); EOS # 0.3 10^3/uL (0.0-0.5); HEMATOCRIT 43.1 % (36.0-47.0); LYMPH # 3.1 10^3/uL (1.5-5.0); LYMPH % 28.2 % (24.0-44.0); MEAN CORPUSCULAR HEMOGLOBIN 31.5 pg (27.0-33.0); MEAN CORPUSCULAR HGB CONC 32.5 g/dl (32.0-36.5); MEAN CORPUSCULAR VOLUME 97.1 fl (80.0-96.0); MONO % 8.6 % (2.0-8.0); NEUTROPHILS # 6.6 10^3/uL (1.5-8.5); NEUTROPHILS % 59.3 % (36.0-66.0); PLATELET COUNT, AUTOMATED 187 10^3/uL (150-450); RED BLOOD COUNT 4.44 10^6/uL (4.00-5.40)
[2021-05-03 16:09] LABS: ERYTHROCYTE SEDIMENTATION RATE 11 mm/hr (0-20)
[2021-05-03 16:12] LABS: ALBUMIN 3.3 GM/DL (3.2-5.2); ALT/SGPT 18 U/L (12-78); BILIRUBIN,DIRECT < 0.1 MG/DL (0.0-0.2); BILIRUBIN,TOTAL 0.3 MG/DL (0.2-1.0); BLOOD UREA NITROGEN 11 MG/DL (7-18); CALCIUM LEVEL 8.7 MG/DL (8.5-10.1); CARBON DIOXIDE LEVEL 27 MEQ/L (21-32); CHLORIDE LEVEL 111 MEQ/L (98-107); CREATININE FOR GFR 0.78 MG/DL (0.55-1.30); GLOMERULAR FILTRATION RATE > 60.0 (>58); GLUCOSE, FASTING 113 MG/DL (70-100); SODIUM LEVEL 142 MEQ/L (136-145); TOTAL PROTEIN 6.4 GM/DL (6.4-8.2)
[2021-05-03 16:23] LABS: ALBUMIN 3.5 GM/DL (3.2-5.2); ALT/SGPT 17 U/L (12-78); BILIRUBIN,TOTAL 0.3 MG/DL (0.2-1.0); BLOOD UREA NITROGEN 11 MG/DL (7-18); CALCIUM LEVEL 8.7 MG/DL (8.5-10.1); CARBON DIOXIDE LEVEL 27 MEQ/L (21-32); CHLORIDE LEVEL 109 MEQ/L (98-107); CHOLESTEROL LEVEL 187 MG/DL (<200); CHOLESTEROL RISK RATIO 3.666 (<5); CREATININE FOR GFR 0.89 MG/DL (0.55-1.30); GLOMERULAR FILTRATION RATE > 60.0 (>58); GLUCOSE, FASTING 100 MG/DL (70-100); HDL CHOLESTEROL 51 MG/DL (>40); LDL CHOLESTEROL 120 MG/DL (<100); NON-HDL-C 136 MG/DL; POTASSIUM SERUM 4.3 MEQ/L (3.5-5.1); SODIUM LEVEL 140 MEQ/L (136-145); TOTAL 25(OH) VITAMIN D 74.6 NG/ML (30.0-100.0); TRIGLYCERIDES LEVEL 78 MG/DL (<150); VITAMIN B12 LEVEL 528 PG/ML (247-911)
[2021-05-04] MEDS ORDERED: SODIUM CHLORIDE 0.9% INJ 10 ML SYR IV SCH (09:00)
== END 2021-05-03 15:05 | disposition home or self-care (01) ==
LOC: M INFU 14:31
PROVIDERS: ATTEND Anesthesiology
DX: Z79.899 Other long term (current) drug therapy (principal); Z95.828 Presence of other vascular implants and grafts
CPT/HCPCS: 36415; 36591; 80048; 80053; 80061; 80076; 82306; 82607; 83497; 84165; 84439; 84443; 85025; 85652; 86140; 86617; 96523; J1642

== ENCOUNTER → 2021-05-03 | Outpatient (CLI) | payer OTHER | LOC: M LAB 14:44 | PROVIDERS: ATTEND Family Medicine | DX: G90.50 Complex regional pain syndrome I, unspecified (principal); R63.4 Abnormal weight loss; R73.03 Prediabetes; E78.5 Hyperlipidemia, unspecified; E55.9 Vitamin D deficiency, unspecified ==

== ENCOUNTER 2021-06-29 13:02 | Outpatient (CLI) | payer OTHER ==
[~2021-06-29 13:02] MED LIST changes: -SODIUM CHLORIDE 0.9% INJ 10 ML SYR IV PRN; +SODIUM CHLORIDE 0.9% INJ 10 ML SYR IV SCH
[2021-06-29 13:30] VITALS: BP 121/75
[2021-06-29] MEDS ORDERED: SODIUM CHLORIDE 0.9% INJ 10 ML SYR IV PRN (13:55)
[2021-06-29 14:30] LABS: ALBUMIN 3.4 GM/DL (3.2-5.2); ALT/SGPT 21 U/L (12-78); BILIRUBIN,TOTAL 0.3 MG/DL (0.2-1.0); BLOOD UREA NITROGEN 18 MG/DL (7-18); CALCIUM LEVEL 9.1 MG/DL (8.5-10.1); CARBON DIOXIDE LEVEL 27 MEQ/L (21-32); CHLORIDE LEVEL 110 MEQ/L (98-107); CREATININE FOR GFR 0.88 MG/DL (0.55-1.30); GLOMERULAR FILTRATION RATE > 60.0 (>58); GLUCOSE, FASTING 109 MG/DL (70-100); POTASSIUM SERUM 3.9 MEQ/L (3.5-5.1); SODIUM LEVEL 141 MEQ/L (136-145); TOTAL PROTEIN 6.8 GM/DL (6.4-8.2)
== END 2021-06-29 14:10 | disposition home or self-care (01) ==
LOC: M INFU 13:02
PROVIDERS: ATTEND Anesthesiology
DX: Z95.828 Presence of other vascular implants and grafts (principal); Z79.899 Other long term (current) drug therapy
CPT/HCPCS: 36591; 80053; 96523; J1642

== ENCOUNTER 2021-09-04 08:15 | Outpatient (CLI) | payer OTHER ==
[~2021-09-04 08:15] MED LIST changes: -SODIUM CHLORIDE 0.9% INJ 10 ML SYR IV SCH
[2021-09-04 08:30] VITALS: BP 119/58
[2021-09-04] MEDS ORDERED: SODIUM CHLORIDE 0.9% INJ 10 ML SYR IV PRN (08:30)
[2021-09-04] MEDS ORDERED: SODIUM CHLORIDE 0.9% INJ 10 ML SYR IV SCH (09:00)
[2021-09-04 09:38] LABS: ALBUMIN 3.3 GM/DL (3.2-5.2); ALT/SGPT 22 U/L (12-78); BILIRUBIN,TOTAL 0.3 MG/DL (0.2-1.0); BLOOD UREA NITROGEN 15 MG/DL (7-18); CARBON DIOXIDE LEVEL 25 MEQ/L (21-32); CHLORIDE LEVEL 112 MEQ/L (98-107); GLOMERULAR FILTRATION RATE > 60.0 (>58); GLUCOSE, FASTING 123 MG/DL (70-100); POTASSIUM SERUM 4.2 MEQ/L (3.5-5.1); SODIUM LEVEL 143 MEQ/L (136-145); TOTAL PROTEIN 6.3 GM/DL (6.4-8.2)
== END 2021-09-04 08:50 | disposition home or self-care (01) ==
LOC: M INFU 08:15
PROVIDERS: ATTEND Anesthesiology
DX: Z95.828 Presence of other vascular implants and grafts (principal); Z79.899 Other long term (current) drug therapy
CPT/HCPCS: 80053; 96523; J1642

== ENCOUNTER 2021-11-22 08:01 | Outpatient (CLI) | payer OTHER ==
[~2021-11-22 08:01] MED LIST changes: +SODIUM CHLORIDE 0.9% INJ 10 ML SYR IV PRN
[2021-11-22 08:35] VITALS: BP 141/86
[2021-11-22 08:51] LABS: BASO % 0.5 % (0.0-1.0); EOS # 0.4 10^3/uL (0.0-0.5); EOS % 4.3 % (0.0-3.0); HEMATOCRIT 41.8 % (36.0-47.0); HEMOGLOBIN 13.8 g/dl (12.0-15.5); LYMPH # 2.4 10^3/uL (1.5-5.0); LYMPH % 27.3 % (24.0-44.0); MEAN CORPUSCULAR HEMOGLOBIN 31.4 pg (27.0-33.0); MEAN CORPUSCULAR VOLUME 95.2 fl (80.0-96.0); MONO # 1.1 10^3/uL (0.0-0.8); MONO % 13.1 % (2.0-8.0); NEUTROPHILS # 4.7 10^3/uL (1.5-8.5); NEUTROPHILS % 54.5 % (36.0-66.0); PLATELET COUNT, AUTOMATED 197 10^3/uL (150-450); RED BLOOD COUNT 4.39 10^6/uL (4.00-5.40); WHITE BLOOD COUNT 8.6 10^3/uL (4.0-10.0)
[2021-11-22] MEDS ORDERED: SODIUM CHLORIDE 0.9% INJ 10 ML SYR IV SCH (09:00)
[2021-11-22 09:08] LABS: ERYTHROCYTE SEDIMENTATION RATE 10 mm/hr (0-20)
[2021-11-22 09:31] LABS: ALBUMIN 3.4 GM/DL (3.2-5.2); ALT/SGPT 21 U/L (12-78); BILIRUBIN,TOTAL 0.2 MG/DL (0.2-1.0); BLOOD UREA NITROGEN 15 MG/DL (7-18); CALCIUM LEVEL 9.2 MG/DL (8.5-10.1); CARBON DIOXIDE LEVEL 28 MEQ/L (21-32); CHLORIDE LEVEL 111 MEQ/L (98-107); CHOLESTEROL LEVEL 162 MG/DL (<200); CHOLESTEROL RISK RATIO 3.446 (<5); CREATININE FOR GFR 0.75 MG/DL (0.55-1.30); FREE T4 1.01 NG/DL (0.76-1.46); GLOMERULAR FILTRATION RATE > 60.0 (>58); GLUCOSE, FASTING 104 MG/DL (70-100); HDL CHOLESTEROL 47 MG/DL (>40); LDL CHOLESTEROL 100 MG/DL (<100); NON-HDL-C 115 MG/DL; POTASSIUM SERUM 4.4 MEQ/L (3.5-5.1); SODIUM LEVEL 140 MEQ/L (136-145); TOTAL PROTEIN 6.6 GM/DL (6.4-8.2); TRIGLYCERIDES LEVEL 74 MG/DL (<150)
[2021-11-22 09:34] LABS: TOTAL 25(OH) VITAMIN D 88.5 NG/ML (30.0-100.0); VITAMIN B12 LEVEL 488 PG/ML (247-911)
== END 2021-11-22 08:40 | disposition home or self-care (01) ==
LOC: M INFU 08:01
PROVIDERS: ATTEND Anesthesiology
DX: Z95.828 Presence of other vascular implants and grafts (principal)
CPT/HCPCS: 36415; 80053; 80061; 82306; 82607; 84439; 84443; 85025; 85652; 86140; 96523; J1642

== ENCOUNTER 2022-01-21 08:25 | Outpatient (CLI) | payer OTHER ==
[~2022-01-21] VITALS: Ht 167.6 cm; Wt 106.0 kg
[~2022-01-21 08:25] MED LIST changes: -SODIUM CHLORIDE 0.9% INJ 10 ML SYR IV PRN
[2022-01-21] MEDS ORDERED: SODIUM CHLORIDE 0.9% INJ 10 ML SYR IV SCH (09:00)
[2022-01-21 09:06] VITALS: BP 134/83
== END 2022-01-21 09:05 | disposition home or self-care (01) ==
LOC: M INFU 08:25
PROVIDERS: ATTEND Anesthesiology
DX: Z95.828 Presence of other vascular implants and grafts (principal)
CPT/HCPCS: 96523; J1642

== ENCOUNTER → 2022-07-30 | Outpatient (CLI) | payer OTHER | LOC: M RAD 09:26 | PROVIDERS: ATTEND Radiology Diagnostic Radiology | DX: Z45.2 Encounter for adjustment and management of vascular access device (principal) ==

== ENCOUNTER → 2022-07-30 | Outpatient (POV) | payer OTHER ==
[~2022-07-30] VITALS: Ht 170.2 cm; Wt 92.7 kg
[2022-07-30 08:45] VITALS: BP 130/76
== END ==
LOC: M IRPOV 08:24
PROVIDERS: ATTEND Radiology Diagnostic Radiology
DX: G90.50 Complex regional pain syndrome I, unspecified (principal); Z45.2 Encounter for adjustment and management of vascular access device; Z79.899 Other long term (current) drug therapy; Z88.0 Allergy status to penicillin; Z88.1 Allergy status to other antibiotic agents; Z88.2 Allergy status to sulfonamides; Z88.8 Allergy status to other drugs, medicaments and biological substances

== ENCOUNTER 2022-10-28 11:36 | Outpatient (CLI) | payer OTHER ==
[~2022-10-28] VITALS: Ht 170.2 cm; Wt 92.7 kg
[~2022-10-28 11:36] MED LIST changes: +SODIUM CHLORIDE 0.9% INJ 10 ML SYR IV SCH
== END 2022-10-28 12:55 | disposition home or self-care (01) ==
LOC: M INFU 11:36
PROVIDERS: ATTEND Anesthesiology
DX: Z95.828 Presence of other vascular implants and grafts (principal); Z88.0 Allergy status to penicillin; Z88.1 Allergy status to other antibiotic agents; Z88.8 Allergy status to other drugs, medicaments and biological substances
CPT/HCPCS: 96523; J1642

== ENCOUNTER → 2022-12-12 | Outpatient (CLI) | payer OTHER ==
[~2022-12-12] MED LIST changes: +D3-5CAP PO; +LIDOCAINE IV; +LORA2TAB14 PO; +ONDA-83 PO; +PROP20TA72 PO; -SODIUM CHLORIDE 0.9% INJ 10 ML SYR IV SCH; +ZOLP10TA2 PO; +[UNRECOGNIZED DRUG - CODE] IV
== END ==
LOC: M LABSMTC 11:30
PROVIDERS: ATTEND Anesthesiology
DX: Z01.818 Encounter for other preprocedural examination (principal); Z11.52 Encounter for screening for COVID-19

== ENCOUNTER 2022-12-17 08:51 | Day surgery (SDC) | payer OTHER ==
[~2022-12-17] VITALS: Ht 170.2 cm; Wt 92.4 kg
[~2022-12-17 08:51] MED LIST changes: +NS 1,000 ML IV ONE
[2022-12-17] MEDS ORDERED: propofoL 200 MG/20 ML VIAL As Ordered ONE (09:29)
[2022-12-17] MEDS ORDERED: SODIUM CHLORIDE 0.9% INJ 10 ML SYR IV PRN (10:25)
[2022-12-17 10:40] VITALS: BP 126/66
== END 2022-12-17 10:58 | disposition home or self-care (01) ==
LOC: M OPP 08:51
PROVIDERS: ATTEND Internal Medicine Gastroenterology
DX: Z12.11 Encounter for screening for malignant neoplasm of colon (principal); K63.5 Polyp of colon; K64.8 Other hemorrhoids; I10 Essential (primary) hypertension; E78.5 Hyperlipidemia, unspecified; M19.90 Unspecified osteoarthritis, unspecified site; F41.9 Anxiety disorder, unspecified; F32.A Depression, unspecified; G62.9 Polyneuropathy, unspecified; F17.210 Nicotine dependence, cigarettes, uncomplicated; Z88.0 Allergy status to penicillin; Z88.1 Allergy status to other antibiotic agents; Z88.8 Allergy status to other drugs, medicaments and biological substances; Z79.899 Other long term (current) drug therapy; Z83.3 Family history of diabetes mellitus; Z83.49 Family history of other endocrine, nutritional and metabolic diseases; Z82.69 Family history of other diseases of the musculoskeletal system and connective tissue

== ENCOUNTER → 2023-03-11 | Outpatient (POV) | payer OTHER ==
[~2023-03-11] VITALS: Ht 170.2 cm; Wt 92.7 kg
[~2023-03-11] MED LIST changes: -NS 1,000 ML IV ONE
[2023-03-11 08:55] VITALS: BP 136/87; O2SAT 98
== END ==
LOC: M IRPOV 08:43
PROVIDERS: ATTEND Radiology Diagnostic Radiology
DX: Z45.2 Encounter for adjustment and management of vascular access device (principal); Z88.0 Allergy status to penicillin; Z88.2 Allergy status to sulfonamides; Z88.8 Allergy status to other drugs, medicaments and biological substances

== ENCOUNTER 2023-05-07 10:11 | Outpatient (CLI) | payer OTHER ==
[~2023-05-07] VITALS: Ht 170.2 cm; Wt 92.7 kg
[~2023-05-07 10:11] MED LIST changes: +SODIUM CHLORIDE 0.9% INJ 10 ML SYR IV SCH
[2023-05-07 10:15] VITALS: BP 133/87; O2SAT 98
[2023-05-07 11:33] LABS: ALBUMIN 3.3 G/DL (3.2-5.2); ALKALINE PHOSPHATASE 72 U/L (46-116); ALT/SGPT 11 U/L (7.0-40); AST/SGOT 13 U/L (<34); BILIRUBIN,DIRECT < 0.1 MG/DL (<0.4); BILIRUBIN,TOTAL 0.3 MG/DL (0.3-1.2); TOTAL PROTEIN 6.3 G/DL (5.7-8.2)
== END 2023-05-07 10:55 ==
LOC: M INFU 10:11
PROVIDERS: ATTEND Anesthesiology
DX: Z95.828 Presence of other vascular implants and grafts (principal); Z88.0 Allergy status to penicillin; Z88.2 Allergy status to sulfonamides; Z88.8 Allergy status to other drugs, medicaments and biological substances

== ENCOUNTER → 2023-09-19 | Outpatient (CLI) | payer OTHER ==
[~2023-09-19] VITALS: Ht 170.2 cm; Wt 92.7 kg
[2023-09-19 07:00] VITALS: BP 120/73; O2SAT 99
== END ==
LOC: M INFU 06:54
PROVIDERS: ATTEND Anesthesiology
DX: Z95.828 Presence of other vascular implants and grafts (principal); Z88.0 Allergy status to penicillin; Z88.2 Allergy status to sulfonamides; Z88.8 Allergy status to other drugs, medicaments and biological substances

== ENCOUNTER 2023-10-16 20:31 | Emergency (ER) | payer OTHER ==
[~2023-10-16] VITALS: Ht 170.2 cm; Wt 97.0 kg
[~2023-10-16 20:31] MED LIST changes: -SODIUM CHLORIDE 0.9% INJ 10 ML SYR IV SCH
[2023-10-16] MEDS ORDERED: LIDOCAINE 1% MDV 20ML VIAL SC ONE (22:30)
[2023-10-16] MEDS ORDERED: DOXY-443 PO (23:03)
[2023-10-16 23:07] VITALS: BP 112/63; TEMP 97.6; O2SAT 98
== END 2023-10-16 23:09 | disposition home or self-care (01) ==
LOC: M ED 20:31
DX: L02.213 Cutaneous abscess of chest wall (principal); Z88.0 Allergy status to penicillin; Z88.2 Allergy status to sulfonamides; Z88.5 Allergy status to narcotic agent; Z88.8 Allergy status to other drugs, medicaments and biological substances; Z79.83 Long term (current) use of bisphosphonates; Z79.891 Long term (current) use of opiate analgesic; Z79.2 Long term (current) use of antibiotics; Z79.899 Other long term (current) drug therapy

== ENCOUNTER 2024-01-15 08:22 | Outpatient (CLI) | payer OTHER ==
[~2024-01-15 08:22] MED LIST changes: +DOXY-323 PO; +TIZA4CAP3 PO; -TIZA4CAP6 PO
[2024-01-15] MEDS: SODIUM CHLORIDE 0.9% INJ 10 ML SYR IV SCH (08:40)
== END 2024-01-15 08:44 | disposition home or self-care (01) ==
LOC: M INFU 08:22
PROVIDERS: ATTEND Family Medicine
DX: Z95.828 Presence of other vascular implants and grafts (principal)

== ENCOUNTER 2024-02-26 07:40 | Outpatient (CLI) | payer OTHER ==
[2024-02-26 07:40] VITALS: BP 142/87; O2SAT 98
[2024-02-26] MEDS: SODIUM CHLORIDE 0.9% INJ 10 ML SYR IV SCH (07:54)
== END 2024-02-26 07:50 | disposition home or self-care (01) ==
LOC: M INFU 07:40
PROVIDERS: ATTEND Family Medicine
DX: Z95.828 Presence of other vascular implants and grafts (principal)

== ENCOUNTER 2024-03-26 07:30 | Outpatient (CLI) | payer OTHER ==
[~2024-03-26] VITALS: Ht 170.2 cm; Wt 90.0 kg
[2024-03-26] MEDS: SODIUM CHLORIDE 0.9% INJ 10 ML SYR IV SCH (07:53)
[2024-03-26 08:05] VITALS: BP 106/59; O2SAT 97
== END 2024-03-26 08:05 ==
LOC: M INFU 07:30
PROVIDERS: ATTEND Family Medicine
DX: Z95.828 Presence of other vascular implants and grafts (principal); Z88.0 Allergy status to penicillin; Z88.2 Allergy status to sulfonamides; Z88.5 Allergy status to narcotic agent; Z88.8 Allergy status to other drugs, medicaments and biological substances

== ENCOUNTER 2024-04-27 07:30 | Outpatient (CLI) | payer OTHER ==
[~2024-04-27] VITALS: Ht 170.2 cm; Wt 90.0 kg
[2024-04-27 07:30] VITALS: BP 135/74; O2SAT 100
[2024-04-27] MEDS: SODIUM CHLORIDE 0.9% INJ 10 ML SYR IV SCH (07:46)
== END 2024-04-27 07:50 ==
LOC: M INFU 07:30
PROVIDERS: ATTEND Family Medicine
DX: Z95.828 Presence of other vascular implants and grafts (principal)

== ENCOUNTER 2024-05-28 09:54 | Outpatient (CLI) | payer OTHER ==
[~2024-05-28 09:54] MED LIST changes: +GABA-1490 PO; -GABA600T4 PO
[2024-05-28 10:00] VITALS: BP 150/90; O2SAT 97
[2024-05-28] MEDS: SODIUM CHLORIDE 0.9% INJ 10 ML SYR IV SCH (10:04)
== END 2024-05-28 10:12 ==
LOC: M INFU 09:54
PROVIDERS: ATTEND Family Medicine
DX: Z95.828 Presence of other vascular implants and grafts (principal); Z88.0 Allergy status to penicillin; Z88.2 Allergy status to sulfonamides; Z88.8 Allergy status to other drugs, medicaments and biological substances
CPT/HCPCS: 96523; J1642

== ENCOUNTER 2024-07-07 10:02 | Outpatient (CLI) | payer OTHER ==
[~2024-07-07] VITALS: Ht 170.2 cm; Wt 92.8 kg
[~2024-07-07 10:02] MED LIST changes: -DOXY-323 PO; +DOXY-441 PO
[2024-07-07] MEDS: SODIUM CHLORIDE 0.9% INJ 10 ML SYR IV SCH (10:05)
[2024-07-07 10:07] VITALS: BP 151/70; O2SAT 100
== END 2024-07-07 10:15 ==
LOC: M INFU 10:02
PROVIDERS: ATTEND Family Medicine
DX: Z45.2 Encounter for adjustment and management of vascular access device (principal); Z88.0 Allergy status to penicillin; Z88.1 Allergy status to other antibiotic agents; Z88.2 Allergy status to sulfonamides; Z88.8 Allergy status to other drugs, medicaments and biological substances
CPT/HCPCS: 96523; J1642

== ENCOUNTER 2024-08-05 10:05 | Outpatient (CLI) | payer OTHER ==
[2024-08-05 10:05] VITALS: BP 120/57; O2SAT 97
[2024-08-05] MEDS: SODIUM CHLORIDE 0.9% INJ 10 ML SYR IV SCH (10:07)
== END 2024-08-05 10:20 ==
LOC: M INFU 10:05
PROVIDERS: ATTEND Family Medicine
DX: Z45.2 Encounter for adjustment and management of vascular access device (principal); Z88.0 Allergy status to penicillin; Z88.2 Allergy status to sulfonamides; Z88.5 Allergy status to narcotic agent; Z88.8 Allergy status to other drugs, medicaments and biological substances
CPT/HCPCS: 96523; J1642

== ENCOUNTER → 2024-09-30 | Outpatient (CLI) | payer OTHER ==
[2024-09-30] MEDS: SODIUM CHLORIDE 0.9% INJ 10 ML SYR IV SCH (10:44)
[2024-09-30 10:57] VITALS: BP 160/103; O2SAT 98
[2024-09-30 11:00] VITALS: BP 160/103; O2SAT 96
== END ==
LOC: M INFU 09:58
PROVIDERS: ATTEND Family Medicine
DX: J45.50 Severe persistent asthma, uncomplicated (principal); Z88.0 Allergy status to penicillin; Z88.2 Allergy status to sulfonamides; Z88.5 Allergy status to narcotic agent; Z88.8 Allergy status to other drugs, medicaments and biological substances
CPT/HCPCS: 96523; J1642

== ENCOUNTER 2024-10-28 10:00 | Outpatient (CLI) | payer OTHER ==
[2024-10-28] MEDS: SODIUM CHLORIDE 0.9% INJ 10 ML SYR IV SCH (10:04)
[2024-10-28 10:05] VITALS: BP 129/58; O2SAT 96
== END 2024-10-28 10:12 ==
LOC: M INFU 10:00
PROVIDERS: ATTEND Family Medicine
DX: Z45.2 Encounter for adjustment and management of vascular access device (principal); Z88.0 Allergy status to penicillin; Z88.2 Allergy status to sulfonamides; Z88.5 Allergy status to narcotic agent; Z88.8 Allergy status to other drugs, medicaments and biological substances
CPT/HCPCS: 96523; J1642

== ENCOUNTER → 2024-11-25 | Outpatient (CLI) | payer OTHER ==
[~2024-11-25] MED LIST changes: +SODIUM CHLORIDE 0.9% INJ 10 ML SYR IV PRN
[2024-11-25 09:45] VITALS: BP 138/77; O2SAT 97
[2024-11-25] MEDS: SODIUM CHLORIDE 0.9% INJ 10 ML SYR IV SCH (09:59)
== END ==
LOC: M INFU 09:32
PROVIDERS: ATTEND Family Medicine
DX: Z45.2 Encounter for adjustment and management of vascular access device (principal); Z88.0 Allergy status to penicillin; Z88.2 Allergy status to sulfonamides; Z88.8 Allergy status to other drugs, medicaments and biological substances
CPT/HCPCS: 96523; J1642

== ENCOUNTER 2024-12-17 07:46 | Emergency (ER) | payer OTHER ==
[~2024-12-17] VITALS: Ht 170.2 cm; Wt 103.3 kg
[~2024-12-17 07:46] MED LIST changes: -SODIUM CHLORIDE 0.9% INJ 10 ML SYR IV PRN
[2024-12-17] MEDS ORDERED: PROP10TA56 (08:00)
[2024-12-17] MEDS ORDERED: MEXI15CA (08:00)
[2024-12-17] MEDS ORDERED: SERT50TA29 (08:00)
[2024-12-17] MEDS ORDERED: SODIUM CHLORIDE 0.9% INJ 10 ML SYR IV PRN (08:20)
[2024-12-17] MEDS: SODIUM CHLORIDE 0.9% INJ 10 ML SYR IV SCH (09:00)
[2024-12-17 09:13] LABS: BASO # 0.1 10^3/uL (0.0-0.2); BASO % 0.6 % (0.0-1.0); EOS # 0.2 10^3/uL (0.0-0.5); EOS % 2.5 % (0.0-3.0); HEMATOCRIT 41.9 % (36.0-47.0); LYMPH # 2.7 10^3/uL (1.5-5.0); LYMPH % 28.4 % (24.0-44.0); MEAN CORPUSCULAR HEMOGLOBIN 32.1 pg (27.0-33.0); MEAN CORPUSCULAR HGB CONC 33.4 g/dl (32.0-36.5); MEAN CORPUSCULAR VOLUME 96.1 fl (80.0-96.0); MONO # 1.1 10^3/uL (0.0-0.8); MONO % 11.5 % (2.0-8.0); NEUTROPHILS # 5.4 10^3/uL (1.5-8.5); NEUTROPHILS % 56.7 % (36.0-66.0); PLATELET COUNT, AUTOMATED 228 10^3/uL (150-450); RED BLOOD COUNT 4.36 10^6/uL (4.00-5.40); WHITE BLOOD COUNT 9.5 10^3/uL (4.0-10.0)
[2024-12-17 09:36] LABS: ALBUMIN 3.3 G/DL (3.2-5.2); ALKALINE PHOSPHATASE 76 U/L (35-104); ALT/SGPT 30 U/L (7.0-40); AST/SGOT 21 U/L (<34); BILIRUBIN,DIRECT < 0.1 MG/DL (<0.4); BILIRUBIN,TOTAL 0.2 MG/DL (0.3-1.2); BLOOD UREA NITROGEN 18 MG/DL (9-23); CARBON DIOXIDE LEVEL 25 MMOL/L (20-31); CHLORIDE LEVEL 111 MMOL/L (98-107); CK-MB VALUE MASS < 1.0 NG/ML (<3.6); CPK CREATINE PHOSPHOKINASE 41 U/L (34-145); CREATININE FOR GFR 0.78 MG/DL (0.55-1.30); FREE T4 1.03 NG/DL (0.89-1.76); GLOMERULAR FILTRATION RATE > 60.0 (>51); GLUCOSE, FASTING 105 MG/DL (60-100); MB/CK RELATIVE INDEX 2.43 (< OR =4); POTASSIUM SERUM 4.3 MMOL/L (3.5-5.1); SODIUM LEVEL 144 MMOL/L (136-145); TOTAL PROTEIN 6.5 G/DL (5.7-8.2)
[2024-12-17] MEDS ORDERED: ISOVUE-370 76% 100ML VIAL As Ordered ONE (09:45)
[2024-12-17] MEDS: ACETAMINOPHEN *IV* 1,000 MG in IV 1 EA IV ONE (10:35)
[2024-12-17] MEDS: KETOROLAC 30 MG/ML 1ML VIAL IV ONE (10:35)
[2024-12-17 10:59] LABS: CK-MB VALUE MASS < 1.0 NG/ML (<3.6)
[2024-12-17 11:04] LABS: CPK CREATINE PHOSPHOKINASE 38 U/L (34-145); INR 0.82; MB/CK RELATIVE INDEX 2.63 (< OR =4); PARTIAL THROMBOPLASTIN TIME 28.1 SECONDS (24.8-34.2); PROTHROMBIN TIME 11.6 SECONDS (12.5-14.5)
[2024-12-17] MEDS: SODIUM CHLORIDE 0.9% INJ 10 ML SYR IV PRN (11:34)
[2024-12-17 13:08] VITALS: BP 118/66; TEMP 97.3; O2SAT 98
== END 2024-12-17 13:19 | disposition home or self-care (01) ==
LOC: M ED 07:46
DX: R07.9 Chest pain, unspecified (principal); G90.50 Complex regional pain syndrome I, unspecified; I10 Essential (primary) hypertension; Z87.891 Personal history of nicotine dependence; Z88.0 Allergy status to penicillin; Z88.2 Allergy status to sulfonamides; Z88.5 Allergy status to narcotic agent; Z88.8 Allergy status to other drugs, medicaments and biological substances; Z79.899 Other long term (current) drug therapy; Z79.83 Long term (current) use of bisphosphonates
CPT/HCPCS: 71045; 71275; 80048; 80076; 82550; 82553; 84439; 84443; 84484; 85025; 85610; 85730; 93005; 93041; 94760; 96374; 96375; 96376; 99285; J0131; J1642; J1885; Q9967

== ENCOUNTER → 2025-04-21 | Outpatient (CLI) | payer OTHER ==
[~2025-04-21] MED LIST changes: +BUPR150T15 PO; -BUPR1TAB53 PO; +MEDR4PAK PO; +MEXI15CA; +PROHANCE 279.3MG/ML 15ML VIAL ONE; +PROHANCE 279.3MG/ML 5ML VIAL ONE; +PROP10TA56; +SERT50TA29
== END ==
LOC: M PLAIMG 12:07
PROVIDERS: ATTEND Student in an Organized Health Care Education/Training Program
DX: B27.90 Infectious mononucleosis, unspecified without complication (principal); R92.2 Inconclusive mammogram; R20.8 Other disturbances of skin sensation
CPT/HCPCS: 77049; A9576

== ENCOUNTER 2025-04-26 11:21 | Emergency (ER) | payer OTHER ==
[~2025-04-26] VITALS: Ht 170.2 cm; Wt 102.6 kg
[~2025-04-26 11:21] MED LIST changes: -MEDR4PAK PO; -PROHANCE 279.3MG/ML 15ML VIAL ONE; -PROHANCE 279.3MG/ML 5ML VIAL ONE
[2025-04-26] MEDS: KETOROLAC 30 MG/ML 1 ML VIAL IV ONE (12:46)
[2025-04-26] MEDS: ACETAMINOPHEN *IV* 1,000 MG in IV 1 EA IV ONE (12:46)
[2025-04-26] MEDS: GABAPENTIN 300 MG CAP PO ONE (14:40)
[2025-04-26] MEDS: KETAMINE HCL IV ONE (14:45)
[2025-04-26] MEDS: NS IV ONE (14:45)
[2025-04-26] MEDS: ONDANSETRON 4MG TAB PO ONE (14:57)
[2025-04-26] MEDS ORDERED: MEDR4PAK PO (15:34)
[2025-04-26 16:24] VITALS: BP 131/64; TEMP 97.2
[2025-04-26 16:30] VITALS: O2SAT 99
[2025-04-26] MEDS: HEPARIN LOCK FLUSH 100 UNITS/ML 3 ML SYRINGE IV PRN (16:32)
[2025-04-26] MEDS: SODIUM CHLORIDE 0.9% INJ 10 ML SYR IV PRN (16:32)
== END 2025-04-26 16:40 | disposition home or self-care (01) ==
LOC: M ED 11:21
DX: G90.512 Complex regional pain syndrome I of left upper limb (principal); Z88.0 Allergy status to penicillin; Z88.2 Allergy status to sulfonamides; Z88.5 Allergy status to narcotic agent; Z88.8 Allergy status to other drugs, medicaments and biological substances; Z79.899 Other long term (current) drug therapy; Z79.83 Long term (current) use of bisphosphonates
CPT/HCPCS: 93971; 96365; 96366; 96375; 99284; J0131; J1642; J1885; J2919

== ENCOUNTER 2025-05-26 15:15 | Outpatient (CLI) | payer OTHER ==
[~2025-05-26 15:15] MED LIST changes: -IBUP1TAB6 PO; +MEDR4PAK PO; +SFHIBU600 PO; +ZOLP10TA11 PO; -ZOLP10TA2 PO
[2025-05-26] MEDS: HEPARIN LOCK FLUSH 100 UNITS/ML 3 ML SYRINGE IV SCH (16:17)
[2025-05-26] MEDS: SODIUM CHLORIDE 0.9% INJ 10 ML SYR IV SCH (16:17)
== END 2025-05-26 16:22 ==
LOC: M INFU 15:15
PROVIDERS: ATTEND Student in an Organized Health Care Education/Training Program
DX: Z71.89 Other specified counseling (principal)
CPT/HCPCS: 96374; J1642

== ENCOUNTER 2025-07-21 10:18 | Outpatient (CLI) | payer OTHER ==
[~2025-07-21] VITALS: Ht 170.2 cm; Wt 104.0 kg
[2025-07-21] MEDS: SODIUM CHLORIDE 0.9% INJ 10 ML SYR IV SCH (10:24)
[2025-07-21] MEDS: HEPARIN LOCK FLUSH 100 UNITS/ML 3 ML SYRINGE IV SCH (10:24)
[2025-07-21 10:30] VITALS: BP 128/71; O2SAT 99
== END 2025-07-21 10:35 | disposition home or self-care (01) ==
LOC: M INFU 10:18
PROVIDERS: ATTEND Student in an Organized Health Care Education/Training Program
DX: Z71.89 Other specified counseling (principal); Z88.0 Allergy status to penicillin; Z88.5 Allergy status to narcotic agent; Z88.8 Allergy status to other drugs, medicaments and biological substances
CPT/HCPCS: 96374; J1642